=== PATIENT | male | born 1930 | race Caucasian/White ===

== ENCOUNTER 2018-07-08 15:45 | Inpatient (IN) | payer MEDICARE, MEDICAID ==
[~2018-07-08] VITALS: Ht 175.3 cm; Wt 69.4 kg
[2018-07-08] MEDS ORDERED: SODIUM CHLORIDE 0.9% 500 ML IV ONE (16:34)
[2018-07-08] MEDS ORDERED: ASPIRIN 81MG TABLET PO ONE (17:00)
[2018-07-08] MEDS ORDERED: LEVOFLOXACIN 500MG PREMIX 100 ML IV ONE (17:45)
[2018-07-08 17:47] LABS: EOSINOPHILS % 2.6 % (0.0-5.0); HEMATOCRIT. 36.8 % (42.0-52.0); HEMOGLOBIN. 12.4 g/dL (14.0-18.0); LYMPHOCYTES % 23.7 % (20.0-50.0); MEAN CORPUSCULAR HEMOGLOBIN 29.5 pg (28.0-32.0); MEAN CORPUSCULAR VOLUME 87.6 fL (80.0-94.0); MEAN PLATELET VOLUME 9.6 fl (7.4-10.4); MONOCYTES % 11.4 % (2.0-8.0); NEUTROPHILS % 61.3 % (40.0-76.0); PLATELET 128 x1000/uL (130-400); RED BLOOD CELL COUNT 4.21 mill/uL (4.7-6.1); RED CELL DISTRIBUTION WIDTH 14.5 % (11.6-14.6)
[2018-07-08 17:49] LABS: CHLORIDE 103 mEq/L (98-107); INR 1.1; PROTHROMBIN TIME 11.4 sec (9.1-11.1)
[2018-07-08 18:49] LABS: CLARITY URINE CLEAR (CLEAR); COLOR URINE DARK YELLOW (YELLOW); KETONES URINE 1+ (NEGATIVE); LEUKOCYTE ESTERASE URINE NEGATIVE (NEGATIVE); NITRITE URINE NEGATIVE (NEGATIVE); OCCULT BLOOD URINE NEGATIVE (NEGATIVE); PROTEIN URINE NEGATIVE (NEGATIVE); SPECIFIC GRAVITY URINE 1.017 (1.005-1.030); UROBILINOGEN URINE 0.2 E.U./dL (0.2-1.0)
[2018-07-08] MEDS ORDERED: ONDANSETRON HCL 4MG/2ML INJ IV PRN (19:00)
[2018-07-08] MEDS ORDERED: ACETAMINOPHEN 325MG TABLET PO PRN (19:00)
[2018-07-08 23:00] VITALS: BP 182/75
[2018-07-08 23:30] VITALS: BP 182/75
[2018-07-09] VITALS (9 sets, daily range): BP systolic 111–195; BP diastolic 60–84
[2018-07-09] MEDS ORDERED: DOCU-138 PO (01:52)
[2018-07-09] MEDS ORDERED: ACET-2178 PO (01:52)
[2018-07-09] MEDS ORDERED: TAMS0.4C31 PO (01:52)
[2018-07-09] MEDS ORDERED: MULT-1146 PO (01:52)
[2018-07-09] MEDS ORDERED: FINA5TAB11 PO (01:52)
[2018-07-09] MEDS ORDERED: ATOR40TA70 PO (01:52)
[2018-07-09 08:22] LABS: BASOPHILS % 1.4 % (0.0-2.0); EOSINOPHILS % 4.1 % (0.0-5.0); HEMATOCRIT. 37.8 % (42.0-52.0); HEMOGLOBIN. 12.9 g/dL (14.0-18.0); LYMPHOCYTES % 25.9 % (20.0-50.0); MEAN CORPUSCULAR HEMOGLOBIN 29.9 pg (28.0-32.0); MEAN CORPUSCULAR VOLUME 87.3 fL (80.0-94.0); MEAN PLATELET VOLUME 10.1 fl (7.4-10.4); MONOCYTES % 12.1 % (2.0-8.0); NEUTROPHILS % 56.5 % (40.0-76.0); PLATELET 131 x1000/uL (130-400); RED BLOOD CELL COUNT 4.32 mill/uL (4.7-6.1); RED CELL DISTRIBUTION WIDTH 14.3 % (11.6-14.6)
[2018-07-09] MEDS ORDERED: CLONIDINE 0.1MG TABLET PO PRN (08:30)
[2018-07-09 08:44] LABS: CHLORIDE 102 mEq/L (98-107)
[2018-07-09] MEDS: DOCUSATE SODIUM 100MG CAPSULE PO SCH ×2 (08:57→18:14)
[2018-07-09] MEDS: AMLODIPINE 10MG TABLET PO SCH (08:58)
[2018-07-09] MEDS ORDERED: ASPIRIN 81MG TABLET PO SCH (09:00)
[2018-07-09] MEDS: CLONIDINE 0.1MG TABLET PO PRN (09:05)
[2018-07-09] MEDS: LOSARTAN POTASSIUM 25 MG TABLET PO SCH (18:15)
[2018-07-10] VITALS (9 sets, daily range): BP systolic 107–171; BP diastolic 57–82
[2018-07-10 07:26] LABS: EOSINOPHILS % 5.5 % (0.0-5.0); HEMATOCRIT. 41.1 % (42.0-52.0); LYMPHOCYTES % 26.4 % (20.0-50.0); MEAN CORPUSCULAR HEMOGLOBIN 29.8 pg (28.0-32.0); MEAN CORPUSCULAR VOLUME 87.3 fL (80.0-94.0); MEAN PLATELET VOLUME 9.6 fl (7.4-10.4); MONOCYTES % 11.6 % (2.0-8.0); NEUTROPHILS % 55.5 % (40.0-76.0); PLATELET 140 x1000/uL (130-400); RED BLOOD CELL COUNT 4.71 mill/uL (4.7-6.1); RED CELL DISTRIBUTION WIDTH 14.9 % (11.6-14.6)
[2018-07-10] MEDS: DOCUSATE SODIUM 100MG CAPSULE PO SCH ×2 (08:48→17:12)
[2018-07-10] MEDS: CLONIDINE 0.1MG TABLET PO PRN (08:48)
[2018-07-10] MEDS: AMLODIPINE 10MG TABLET PO SCH (08:48)
[2018-07-10] MEDS: LOSARTAN POTASSIUM 25 MG TABLET PO SCH (08:48)
[2018-07-10 10:05] LABS: CHLORIDE 100 mEq/L (98-107)
[2018-07-10] MEDS: CLOPIDOGREL 75MG TABLET PO SCH (10:38)
[2018-07-10] MEDS: ENOXAPARIN 40MG/0.4ML SYR SUBCUT SCH (10:39)
[2018-07-10 13:37] LABS: T4 FREE 1.2 ng/dL (0.76-1.46)
[2018-07-10 16:47] LABS: CREATINE KINASE 73 IU/L (39-308)
[2018-07-10 16:48] LABS: CREATINE KINASE MB FRACTION 1.7 ng/mL (0.5-3.6)
[2018-07-10 23:29] LABS: CREATINE KINASE 82 IU/L (39-308)
[2018-07-10 23:30] LABS: CREATINE KINASE MB FRACTION 1.9 ng/mL (0.5-3.6)
[2018-07-11] VITALS: BP_SYST 112; BP_SYST 128; BP_SYST 134; BP_DIAS 58; BP_DIAS 63; BP_DIAS 70
[2018-07-11 04:00] VITALS: BP 105/69
[2018-07-11 08:00] VITALS: BP_SYST 105; BP_SYST 130; BP_SYST 142; BP_DIAS 54; BP_DIAS 71
[2018-07-11] MEDS: DOCUSATE SODIUM 100MG CAPSULE PO SCH ×2 (09:03→17:32)
[2018-07-11] MEDS: LOSARTAN POTASSIUM 25 MG TABLET PO SCH (09:03)
[2018-07-11] MEDS: CLOPIDOGREL 75MG TABLET PO SCH (09:03)
[2018-07-11] MEDS: AMLODIPINE 10MG TABLET PO SCH (09:04)
[2018-07-11] MEDS: ENOXAPARIN 40MG/0.4ML SYR SUBCUT SCH (09:04)
[2018-07-11 10:30] LABS: CREATINE KINASE 70 IU/L (39-308)
[2018-07-11 10:32] LABS: CREATINE KINASE MB FRACTION 1.9 ng/mL (0.5-3.6)
[2018-07-11 12:00] VITALS: BP 120/57
[2018-07-11 16:00] VITALS: BP 115/64
[2018-07-11 20:00] VITALS: BP_SYST 122; BP_SYST 126; BP_SYST 128; BP_DIAS 61; BP_DIAS 66; BP_DIAS 69
[2018-07-12] VITALS (7 sets, daily range): BP systolic 111–144; BP diastolic 58–66
[2018-07-12] MEDS: DOCUSATE SODIUM 100MG CAPSULE PO SCH ×2 (09:48→18:27)
[2018-07-12] MEDS: AMLODIPINE 10MG TABLET PO SCH (09:48)
[2018-07-12] MEDS: ENOXAPARIN 40MG/0.4ML SYR SUBCUT SCH (09:48)
[2018-07-12] MEDS: LOSARTAN POTASSIUM 25 MG TABLET PO SCH (09:48)
[2018-07-12] MEDS: CLOPIDOGREL 75MG TABLET PO SCH (09:48)
[2018-07-13] VITALS: BP 130/68
[2018-07-13 04:00] VITALS: BP 138/66
[2018-07-13 08:00] VITALS: BP 156/74
[2018-07-13] MEDS: CLOPIDOGREL 75MG TABLET PO SCH (09:00)
[2018-07-13] MEDS: DOCUSATE SODIUM 100MG CAPSULE PO SCH (09:00)
[2018-07-13] MEDS: LOSARTAN POTASSIUM 25 MG TABLET PO SCH (09:00)
[2018-07-13] MEDS: AMLODIPINE 10MG TABLET PO SCH (09:01)
[2018-07-13] MEDS: ENOXAPARIN 40MG/0.4ML SYR SUBCUT SCH (09:02)
[2018-07-13 12:00] VITALS: BP 159/58
[2018-07-13 15:09] VITALS: BP 142/65
[2018-07-13] MEDS: CLONIDINE 0.1MG TABLET PO PRN (16:38)
[2018-07-14] MEDS ORDERED: LOSARTAN POTASSIUM 50 MG TABLET PO SCH (09:00)
== END 2018-07-13 19:30 | DRG 71 ==
LOC: EDBEDREQ 17:07 → ER 17:22 → 7WST 17:50 → EDBEDREQ 17:59 → ENRESERV 22:03
PROVIDERS: ADMIT Internal Medicine; ATTEND Internal Medicine
DX: G93.41 Metabolic encephalopathy (principal); J98.11 Atelectasis; R07.9 Chest pain, unspecified; I10 Essential (primary) hypertension; F03.90 Unspecified dementia, unspecified severity, without behavioral disturbance, psychotic disturbance, mood disturbance, and anxiety; E78.5 Hyperlipidemia, unspecified; K29.70 Gastritis, unspecified, without bleeding; D64.9 Anemia, unspecified; R00.1 Bradycardia, unspecified; E78.00 Pure hypercholesterolemia, unspecified; I25.10 Atherosclerotic heart disease of native coronary artery without angina pectoris; R32 Unspecified urinary incontinence; Z79.1 Long term (current) use of non-steroidal anti-inflammatories (NSAID); Z79.899 Other long term (current) drug therapy; I25.2 Old myocardial infarction
CPT/HCPCS: 36415; 71045; 80048; 80061; 82140; 82550; 82553; 82962; 83036; 83605; 83735; 83880; 84145; 84439; 84443; 84484; 85379; 93005; 93306; 93970; 97162; 99285; J1650; J1956; J7040